=== PATIENT | male | born 1990 | race Caucasian/White ===

== ENCOUNTER 2025-03-06 15:25 | Emergency (ER) | payer OTHER ==
[~2025-03-06] VITALS: Ht 170.2 cm; Wt 68.9 kg
[2025-03-06 15:51] VITALS: BP 116/73; TEMP 98.5
[2025-03-06] MEDS ORDERED: AMOX-430 PO (16:18)
[2025-03-06] MEDS ORDERED: ALBU18HF2 INH (16:18)
[2025-03-06 16:26] VITALS: O2SAT 99
== END 2025-03-06 16:27 | disposition home or self-care (01) ==
LOC: ER 15:25
DX: J40 Bronchitis, not specified as acute or chronic (principal)
CPT/HCPCS: 71045-TC